=== PATIENT | female | born 1990 | race Caucasian/White ===

== ENCOUNTER 2017-02-14 13:55 | Emergency (ER) | payer OTHER ==
[2017-02-14 14:39] LABS: BASOPHIL % 0.4 % (0-2); PLATELET COUNT 246 x10^3mcL (130-400); RED CELL DISTRIBUTION WIDTH 12.9 % (11.5-14.5)
[2017-02-14 14:47] LABS: ALBUMIN 3.9 g/dL (3.4-5.0); ALKALINE PHOSPHATASE 91 U/L (46-116); ALT/SGPT 42 U/L (14-59); AST/SGOT 75 U/L (15-37); BILIRUBIN TOTAL 0.8 mg/dL (0.20-1.00); CARBON DIOXIDE 26.2 mmol/L (21-32); CHLORIDE SERUM 102 mmol/L (98-107); CREATININE SERUM 0.8 mg/dL (0.6-1.0); GFR1 > 60 mL/min; GLUCOSE SERUM 103 mg/dL (74-106); LIPASE 150 IU/L (73-393); POTASSIUM SERUM 3.5 mmol/L (3.5-5.1); SODIUM SERUM 138 mmol/L (136-145)
[2017-02-14 14:52] LABS: CALCIUM 8.6 mg/dL (8.5-10.1)
[2017-02-14 14:54] LABS: TOTAL PROTEIN, SERUM 8.3 g/dL (6.4-8.2)
[2017-02-14 16:30] VITALS: BP 113/59
== END 2017-02-14 16:31 | disposition home or self-care (01) ==
LOC: ED 13:55
PROVIDERS: Emergency Medicine
DX: K80.80 Other cholelithiasis without obstruction (principal); R19.7 Diarrhea, unspecified
CPT/HCPCS: 36415; J1885; J3010; Q0092

== ENCOUNTER 2018-07-30 19:09 | Emergency (ER) | payer OTHER ==
[~2018-07-30] VITALS: Ht 162.6 cm; Wt 105.2 kg
[2018-07-30 19:49] VITALS: Ht 162.6 cm; Wt 105.2 kg
[2018-07-31 01:34] LABS: BASOPHIL % 0.1 % (0-2); PLATELET COUNT 241 x10^3mcL (130-400); RED CELL DISTRIBUTION WIDTH 12.9 % (11.5-14.5)
[2018-07-31 01:39] LABS: CALCIUM 9.6 mg/dL (8.5-10.1); CARBON DIOXIDE 19.3 mmol/L (21-32); CHLORIDE SERUM 97 mmol/L (98-107); CREATININE SERUM 0.9 mg/dL (0.6-1.0); GFR1 > 60 mL/min; GLUCOSE SERUM 115 mg/dL (74-106); POTASSIUM SERUM 3.5 mmol/L (3.5-5.1); SODIUM SERUM 132 mmol/L (136-145)
[2018-07-31 01:43] LABS: ALBUMIN 3.7 g/dL (3.4-5.0); ALKALINE PHOSPHATASE 97 U/L (46-116); ALT/SGPT 66 U/L (14-59); AST/SGOT 56 U/L (15-37); BILIRUBIN TOTAL 0.72 mg/dL (0.20-1.00)
[2018-07-31 01:45] LABS: TOTAL PROTEIN, SERUM 8.4 g/dL (6.4-8.2)
[2018-07-31 02:15] LABS: FREE T4 1.18 ng/dL (0.76-1.46)
[2018-07-31 02:50] LABS: UA SPECIFIC GRAVITY 1.015 (1.005-1.035); microscopic required? YES; urine erythrocyte 2+ (NEGATIVE)
[2018-07-31 04:29] VITALS: BP 122/70
== END 2018-07-31 04:29 | disposition home or self-care (01) ==
LOC: ED 19:09
PROVIDERS: Emergency Medicine
DX: R50.9 Fever, unspecified (principal); B34.9 Viral infection, unspecified; M79.10 Myalgia, unspecified site; F41.9 Anxiety disorder, unspecified; F32.9 Major depressive disorder, single episode, unspecified
CPT/HCPCS: 84439; J1885; J7030; Q0092

== ENCOUNTER 2018-11-15 08:45 | Emergency (ER) | payer OTHER ==
[~2018-11-15] VITALS: Ht 162.6 cm; Wt 105.7 kg
[2018-11-15 08:56] VITALS: Ht 162.6 cm; Wt 105.7 kg
[2018-11-15 10:53] VITALS: BP 129/68
== END 2018-11-15 11:06 | disposition home or self-care (01) ==
LOC: ED 08:45
DX: M54.6 Pain in thoracic spine (principal); R25.2 Cramp and spasm; R11.0 Nausea; F32.9 Major depressive disorder, single episode, unspecified; F41.9 Anxiety disorder, unspecified

== ENCOUNTER 2019-01-16 06:38 | Emergency (ER) | payer OTHER ==
[~2019-01-16] VITALS: Ht 162.6 cm; Wt 104.3 kg
[2019-01-16 06:43] VITALS: Ht 162.6 cm; Wt 104.3 kg
[2019-01-16 07:41] VITALS: BP 149/82
== END 2019-01-16 07:41 | disposition home or self-care (01) ==
LOC: ED 06:38
DX: I88.9 Nonspecific lymphadenitis, unspecified (principal); F32.9 Major depressive disorder, single episode, unspecified; F41.9 Anxiety disorder, unspecified

== ENCOUNTER 2019-10-07 00:02 | Emergency (ER) | payer OTHER ==
[~2019-10-07] VITALS: Ht 162.6 cm; Wt 72.6 kg
[2019-10-07 00:04] VITALS: Ht 162.6 cm; Wt 72.6 kg
[2019-10-07 01:07] LABS: BASOPHIL % 0.9 % (0-2); PLATELET COUNT 297 x10^3mcL (130-400); RED CELL DISTRIBUTION WIDTH 12.9 % (11.5-14.5)
[2019-10-07 01:25] LABS: CALCIUM 9.2 mg/dL (8.5-10.1); CARBON DIOXIDE 27.9 mmol/L (21-32); CHLORIDE SERUM 100 mmol/L (98-107); CREATININE SERUM 0.8 mg/dL (0.6-1.0); GFR1 > 60 mL/min; GLUCOSE SERUM 123 mg/dL (74-106); SODIUM SERUM 138 mmol/L (136-145)
[2019-10-07 01:30] LABS: ALBUMIN 4.2 g/dL (3.4-5.0); ALKALINE PHOSPHATASE 88 U/L (46-116); ALT/SGPT 37 U/L (14-59); AST/SGOT 29 U/L (15-37); BILIRUBIN TOTAL 0.4 mg/dL (0.20-1.00); LIPASE 118 IU/L (73-393)
[2019-10-07 01:33] LABS: TOTAL PROTEIN, SERUM 8.6 g/dL (6.4-8.2)
[2019-10-07 04:47] VITALS: BP 131/86
== END 2019-10-07 04:47 | disposition home or self-care (01) ==
LOC: ED 00:02
PROVIDERS: Emergency Medicine
DX: B34.9 Viral infection, unspecified (principal)
CPT/HCPCS: J2405; J7030